=== PATIENT | male | born 1980 | race Two or more races ===

== ENCOUNTER 2021-09-15 06:03 | Emergency (ER) | payer MEDICAID, OTHER ==
[~2021-09-15] VITALS: Ht 188 cm; Wt 108.9 kg
[2021-09-15 07:54] VITALS: BP 130/89
[2021-09-15] MEDS ORDERED: KETOROLAC TROMETH 60MG/2ML VIAL IM ONE (08:00)
[2021-09-15] MEDS ORDERED: cefTRIAXone SOD 1,000 MG VL IM ONE (08:00)
[2021-09-15] MEDS ORDERED: CEPH-509 PO (08:31)
[2021-09-15] MEDS ORDERED: INDO50SU RE (08:31)
== END 2021-09-15 08:37 | disposition home or self-care (01) ==
LOC: ER 06:03
DX: S83.92XA Sprain of unspecified site of left knee, initial encounter (principal); S50.812A Abrasion of left forearm, initial encounter; M17.12 Unilateral primary osteoarthritis, left knee; V19.9XXA Pedal cyclist (driver) (passenger) injured in unspecified traffic accident, initial encounter; Y93.I9 Activity, other involving external motion; Y92.89 Other specified places as the place of occurrence of the external cause; Y99.8 Other external cause status
CPT/HCPCS: 73562; 96372; 99284; J0696; J1885

== ENCOUNTER 2021-09-29 16:43 | Emergency (ER) | payer MEDICAID ==
[~2021-09-29] VITALS: Ht 188 cm; Wt 105.2 kg
[~2021-09-29 16:43] MED LIST: CEPH-509 PO; INDO50SU RE
[2021-09-29] MEDS ORDERED: ONDANSETRON HCL 4 MG/2 ML VIAL IV ONE (17:30)
[2021-09-29] MEDS ORDERED: MORPHINE SULFATE 4 MG/ML SYR/VIAL IV ONE (17:30)
[2021-09-29] MEDS ORDERED: fentaNYL CITRATE 100 MCG/2 ML VL IV ONE (18:45)
[2021-09-29] MEDS ORDERED: cefTRIAXone 1GM/50ML D5W 50 ML IV ONE (19:00)
[2021-09-29] MEDS ORDERED: TETANUS-DIPTH-ACEL PERTUSSIS 0.5ML SYR Tdap IM ONE (19:00)
[2021-09-29] MEDS ORDERED: LIDOCAINE 1% HCL (LOCAL ANESTH.) INJ 20ML MDV ONE (19:03)
[2021-09-29] MEDS ORDERED: LORazepam 2MG/ML-1ML VIAL IV ONE (20:00)
[2021-09-29 23:28] VITALS: BP 122/65
== END 2021-09-29 23:52 | disposition short-term general hospital (02) ==
LOC: ER 16:43
DX: S61.211A Laceration without foreign body of left index finger without damage to nail, initial encounter (principal); S51.831A Puncture wound without foreign body of right forearm, initial encounter; M66.831 Spontaneous rupture of other tendons, right forearm; F17.210 Nicotine dependence, cigarettes, uncomplicated; Z88.0 Allergy status to penicillin; Z88.6 Allergy status to analgesic agent; Z79.899 Other long term (current) drug therapy; Z20.822 Contact with and (suspected) exposure to COVID-19; V86.56XA Driver of dirt bike or motor/cross bike injured in nontraffic accident, initial encounter; Y93.89 Activity, other specified; Y92.89 Other specified places as the place of occurrence of the external cause; Y99.8 Other external cause status
CPT/HCPCS: 12001; 36415; 73070; 73090; 73120; 87426; 90471; 90715; 96365; 96375; 99285; J0696; J2001; J2060; J2270; J2405; J3010